=== PATIENT | female | born 1950 | race African-American/Black ===

== ENCOUNTER 2016-09-30 03:47 | Emergency (ER) | payer OTHER ==
[~2016-09-30 03:47] MED LIST: LASIX; PREMPRO 0.3 MG/1 TAB; [UNRECOGNIZED DRUG - OTHER]
[2016-10-18] MEDS ORDERED: METHIMAZOLE10 MG PO (09:08)
[2016-10-18] MEDS ORDERED: PRINIVIL40 MG PO (09:08)
[2016-10-18] MEDS ORDERED: HYDROCHLOROTHIA25 MG PO (09:08)
[2016-10-18] MEDS ORDERED: DILTIAZEM 24HR240 M2 PO (09:09)
== END 2016-09-30 03:55 | disposition home or self-care (01) ==
LOC: CED 03:47
DX: M10.9 Gout, unspecified (principal); I10 Essential (primary) hypertension; E05.90 Thyrotoxicosis, unspecified without thyrotoxic crisis or storm; Z98.890 Other specified postprocedural states
CPT/HCPCS: 96372; 99283

== ENCOUNTER 2016-10-18 10:18 | Inpatient (IN) | payer OTHER ==
--- NOTE | ~2016-10-18 | HP ---
Unit #: [id number] #: [id number] Patient: CLARK CLEMENTE [id number] [address] [address] [id number] I MR#: [id number] NAME: CLARK CLEMENTE ROOM: 99747 Age: 66 Sex: F Admission Date: 10/18/2016 : 1950 Attending Physician: Tiffany Dickson M.D. Primary Care Physician: No Primary Care Physician HISTORY AND PHYSICAL ADDENDUM ADDITIONAL ASSESSMENT Clarification - New onset atrial fibrillation with rapid ventricular response: The patient received 30 mg of diltiazem in the emergency department and was subsequently started on a diltiazem drip at 5 mg per hour. Heart rate has been in the 80s. Will continue the Cardizem drip at 5 mg per hour pending cardiology recommendations. Dictated by Torin Terrazas/noa TD: 10/18/2016 12:41 JOB #: [id number] HISTORY AND PHYSICAL Page 1 of 1 X Tiffany Dickson MD X HISTORY AND PHYSICAL
--- NOTE | ~2016-10-18 | DS ---
Unit #: [id number] #: [id number] Patient: CLARK CAMPBELL [id number] [address] [address] [id number] I MR#: [id number] NAME: CLARK CAMPBELL ROOM: 329 Age: 66 Sex: F Admission Date: 10/18/2016 : 1950 Discharge Date: 10/20/2016 Attending Physician: Orquidea Doll M.D. DISCHARGE SUMMARY SEE ADDENDA PRINCIPAL DIAGNOSES 1. New onset atrial fibrillation with rapid ventricular response. 2. Hypertension, controlled. 3. Gout of left great toe, resolved. 4. Leukopenia. 5. Hypokalemia. 6. Hypothyroidism, maintained on methimazole. 7. Left bundle-branch block. 8. Mild protein malnutrition. 9. Obesity. CONSULTANTS Dr. Bess, Cardiology. PROCEDURES 1. Two dimensional echocardiogram results of which is currently pending. 2. Chest x-ray on 10/18/2016, with cardiomegaly and prominent pulmonary vasculature, interstitial thickening noted. 3. Bilateral lower extremity venous Doppler, which was negative for DVT. CLINICAL HISTORY AND HOSPITAL COURSE Ms. Campbell is a very nice 66-year-old female, who presents to the emergency department with shortness of breath. Please refer to H and P for further details. Chest x-ray revealed questionable edema versus fibrosis of the lower lungs. The patient denies any hypoxia; however, EKG revealed atrial fibrillation with rapid ventricular response and a heart rate of 141. The patient was subsequently admitted. The patient was placed on Cardizem drip and therapeutic Lovenox, and Cardiology was consulted. Two dimensional echocardiogram was done and results of which are currently pending. On Cardizem, Lovenox, and IV diuretics, the patient's shortness of breath resolved and her heart rate is now returned to normal. She has been transitioned back to oral Cardizem, which she was taking at home. In addition to metoprolol and digoxin, again heart rate is stable. She has also been transitioned to oral Xarelto. I will note troponins remained negative and there was plan for an outpatient stress test. The patient did have some significant hypertension and Norvasc was added. Blood pressure can be followed up as an outpatient. The patient also had a mild flare of gout. She is on hydrochlorothiazide and will not have the addition of Lasix. I have discussed with her monitoring her fluid status. I have also provided her with some Unit #: [id number] #: [id number] Patient: CLARK CAMPBELL prednisone to take on a p.r.n. basis at home given NSAIDs are not working at home for her gout. Uric acid level can be drawn when the patient is stable on an outpatient basis to determine whether she needs the addition of allopurinol and/or discontinuation of hydrochlorothiazide. The patient is otherwise clinically stable. Today, she has some mild leukopenia with white blood cell count of 2.7 and I think this can be followed up as an outpatient. DISCHARGE CONDITION Stable. DISCHARGE STATUS Discharged to home. DISCHARGE MEDICATIONS Lasix 40 mg daily, Xarelto 20 mg daily, methimazole 10 mg b.i.d., Norvasc 5 mg daily, digoxin 0.25 mg daily, diltiazem CD 240 mg daily, hydrochlorothiazide 25 mg daily, Diovan 40 mg b.i.d., aspirin 81 mg daily, and prednisone 20 mg tablets take daily x3 days if she develops recurrent gout flare. DISCHARGE INSTRUCTIONS The patient was instructed to follow heart healthy, low-salt diet. She can increase her activity as tolerated. FOLLOWUP The patient will follow up with Dr. Bess in 4 to 6 weeks. Need outpatient stress test done. She should follow up with a new primary care provider in approximately 4 weeks. Need outpatient testing of uric acid level and repeat CBC to ensure leukopenia is resolving. I will note HIV is currently pending. Time spent on discharge 33 minutes. Dictated by... Orquidea Doll M.D. SHAI/jackie TD: 10/21/2016 01:53 JOB #: [id number] ADDENDUM Following evaluation by Cardiology, the patient was placed on Entresto 24/26 mg; however, cost was checked and this is cost prohibitive for patient. I am going to place her back on her lisinopril 40 mg p.o. daily. Discontinue Cozaar and Entresto cost can be re-evaluated as an outpatient. Also note, the patient was placed on Xarelto, but unfortunately this is also expensive and I am checking the cost of Eliquis 5 mg p.o. b.i.d., and she will be prescribed this if cost is not prohibitive. Also note, 2-dimensional echocardiogram return to chart and she was found to have an ejection fraction of 20% to 25%. She will undergo outpatient stress testing per Dr. Bess and [facility] has been arranged. Unit #: [id number] #: [id number] Patient: CLARK CAMPBELL Dictated by... Torin Woodosn/jackie TD: 10/21/2016 03:41 JOB #: [id number] ADDENDUM The patient was fortunately able to get Entresto and Xarelto cheaper after discussion with [facility], that she has been discharged back on Entresto and Xarelto as previously dictated. Lisinopril and Cozaar have been discontinued. Dictated by... Torin Woodson/jackie TD: 10/21/2016 03:58 JOB #: [id number] DISCHARGE SUMMARY Page 1 of 1 X Orquidea Doll MD X DISCHARGE SUMMARY
--- NOTE | ~2016-10-18 | HP ---
Unit #: [id number] #: [id number] Patient: CLARK CLEMENTE [id number] [facility] [address] [facility] [place] [facility]. [place], [place] [address] [id number] E MR#: [id number] NAME: CLARK CLEMENTE ROOM: Age: 66 Sex: F Admission Date: 10/18/2016 : 1950 Attending Physician: Clemencia Dia Pa-C Primary Care Physician: No Primary Care Physician HISTORY AND PHYSICAL CHIEF COMPLAINT Short of air. HISTORY OF PRESENT ILLNESS The patient is a 66-year-old female with past medical history of hyperthyroidism, hypertension and gout who presented to the emergency department for evaluation of the above. The patient states that she has had a 1-week history of upper respiratory symptoms. She states that she has had a nonproductive cough. She denies any fever. On the day prior to admission she developed increasing shortness of breath and tightness in her chest. She states that the chest tightness occurred with cough and just lasted a few seconds and then resolved spontaneously. She did have associated diaphoresis but no nausea. She also reports intermittent palpitations that is not a new problem. She denies any vomiting or diarrhea. No abdominal pain. She states that she does have constipation intermittently, but her last bowel movement was yesterday. In the emergency department initial pulse and blood pressure were 90 and 155/103 respectively. Oxygen saturation was 100% on room air. EKG showed atrial fibrillation with rapid ventricular response and a rate of 141 beats per minute. She was given 30 mg of diltiazem IV. Heart rate is currently in the 80s. She was also given one dose of Lovenox 1 mg per kg subcu. She has never been told that she has atrial fibrillation. She is being admitted to [facility] for evaluation and further treatment. Also of note, she has never seen a landing signal officer, never had a stress test nor a cardiac catheterization. PAST MEDICAL HISTORY 1. Hypertension. 2. Hyperthyroidism, followed by Dr. Flowers. 3. Gout. PAST SURGICAL HISTORY Hernia repair. SOCIAL HISTORY The patient lives with her 93-year-old mother. She does not smoke. There is no alcohol use. 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 CODE STATUS Her code status is a [id number]. Unit #: [id number] #: [id number] Patient: CLARK CLEMENTE FAMILY HISTORY Notable for her mother having atrial fibrillation. Her dad in his 70s. He had hypertension. ALLERGIES No known allergies. HOME MEDICATIONS 1. Methimazole 10 mg b.i.d. 2. Hydrochlorothiazide 25 mg daily. 3. Prinivil 40 mg daily. 4. Diltiazem 240 mg daily. REVIEW OF SYSTEMS A complete review of systems is negative except as indicated in the HPI. The patient states that she was recently treated for a gout flare with 5 days of prednisone that she completed about a week ago. The patient was seen by Dr. Flowers on September 09. She states that, at that time, her methimazole was increased to 10 mg b.i.d. PHYSICAL EXAMINATION VITAL SIGNS: Temperature is 98.1, pulse 90, respirations 18, blood pressure 155/103, oxygen saturation 100% on room air. GENERAL: The patient is a very pleasant female who is awake and alert in no acute distress. HEENT: The head is atraumatic. Mucous membranes are moist. She does have proptosis and periorbital edema. NECK: Supple. Trachea is midline. CARDIOVASCULAR: Irregular. RESPIRATORY: Lungs are clear to auscultation bilaterally with no increased work of breathing. ABDOMEN: Soft, nontender with bowel sounds present in all 4 quadrants. EXTREMITIES: Extremities are nontender. The legs show edema. The left lower extremity is visibly larger than the right. NEUROLOGIC: The patient is awake and alert. She follows commands. PSYCHIATRIC: Mood and affect are normal. The patient is cooperative. SKIN: Skin of examined areas is warm and dry. DIAGNOSTIC TESTS CARDIOVASCULAR: EKG shows atrial fibrillation with rapid ventricular response and a rate of 141 beats per minute. IMAGING: Chest x-ray shows cardiomegaly with prominent pulmonary vascularity. LABORATORY: Troponin is less than 0.05. Complete blood count notable for hemoglobin and hematocrit of 11.7 and 36.6 respectively. INR is 1.1. Comprehensive metabolic panel notable for potassium of 3.1, glucose 133. TSH is 0.02, free T4 is 1.33. ASSESSMENT 1. The patient is a 66-year-old female with new onset atrial fibrillation with rapid ventricular response. The patient received 30 mg of diltiazem. Heart rate is currently in the 80s. She was also given Lovenox. 2. Hyperthyroidism. I spoke with Dr. Flowers who confirmed that the patient is taking 10 mg of methimazole twice daily. We discussed the results of her thyroid test today, and he agreed to continue the same Unit #: [id number] #: [id number] Patient: CLARK CLEMENTE and would like to see her as an outpatient in 4 weeks. 3. Hypokalemia. 4. Hypertension. 5. Gout with recent flare. PLAN 1. Admit to intermediate level. 2. Healthy heart diet. 3. Two-D echo. 4. Lovenox 1 mg per kg subcu q.12 hours. 5. Serial cardiac enzymes. 6. Check magnesium level. 7. Potassium/magnesium protocol. 8. Monitor heart rate closely. 9. Consult Dr. Bess regarding new atrial fibrillation. 10. Check left lower extremity venous Doppler. 11. Repeat labs in the morning, including magnesium and INR. 12. Regarding code status, the patient is a [id number]. Dictated by Torin Terrazas/noa TD: 10/18/2016 12:14 JOB #: [id number] HISTORY AND PHYSICAL Page 1 of 1 X Tiffany Dickson MD X HISTORY AND PHYSICAL
--- NOTE | ~2016-10-18 | EKG ---
PATIENT: CLARK CLEMENTE UNIT #: [id number] Ventricular Rate: 141 BPM Atrial Rate: 131 BPM QRS Duration: 140 ms Q-T Interval: 324 ms QTC Calculation(Bezet): 496 ms Calculated R [place]: -27 degrees Calculated T [place]: 129 degrees Diagnosis Line: Atrial fibrillation with rapid ventricular Diagnosis Line: response Diagnosis Line: Left bundle branch block with repolarization Diagnosis Line: abnormality Diagnosis Line: Abnormal ECG Diagnosis Line: No previous ECGs available Diagnosis Line: Confirmed by LARISA MARTIN MD ([id number]) on 10/19/2016 Diagnosis Line: 9:14:48 PM INTERPRETING MD: MARIO JC
--- NOTE | ~2016-10-18 | CO ---
Unit #: [id number] #: [id number] Patient: CLARK CLEMENTE [id number] [address] [address] [id number] I MR#: [id number] NAME: CLARK CLEMENTE ROOM: 329 Age: 66 Sex: F Admission Date: 10/18/2016 : 1950 Attending Physician: Tiffany Dickson M.D. Consultation Date: 10/18/2016 CONSULTATION REPORT REASON FOR CONSULTATION Atrial fibrillation and chest pain. HISTORY OF PRESENT ILLNESS The patient is a 66-year-old female who does not have a oracle programmer analyst. She has a past medical history of hyperthyroidism, gout, pedal edema, and hypertension. 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 Flowers. The patient reports that for the past two days she has been having chest tightness when she lies flat. The pain is relieved by her sitting up in bed. It has kept her up at night. There has been no radiation of her pain. She has had some shortness of breath and palpitations. She also endorses some fatigue. At present, patient currently denies chest pain. Patient presented to the ER again with complaints of palpitations and shortness of breath. She was found to be in atrial fibrillation with RVR and with a left bundle branch block. Her point of care troponin was less than 0.05, and Cardiology has been consulted for further management. PAST MEDICAL HISTORY 1. Hypertension. 2. Hyperthyroidism. 3. Gout in the left great toe. 4. Nonsmoker. PAST SURGICAL HISTORY Hernia surgery. ALLERGIES No known allergies. HOME MEDICATIONS 1. Methimazole 10 mg p.o. b.i.d. 2. Hydrochlorothiazide 25 mg p.o. daily. 3. Lisinopril 40 mg p.o. daily. 4. Cardizem 24-hr CD 240 mg p.o. daily. FAMILY HISTORY Patient states that her mother has congestive heart failure, atrial fibrillation, and hypothyroidism. SOCIAL HISTORY Patient denies tobacco, alcohol, or illicit drug abuse. 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 She does not exercise. The patient does endorse gaining 10 pounds in the last three months. REVIEW OF SYSTEMS A 10-point review of systems has been done and is considered otherwise negative unless indicated in the History of Present Illness. PHYSICAL EXAMINATION GENERAL: Patient is awake, alert, and in no acute distress. VITAL SIGNS: Temperature 98.1, heart rate 82, respirations 18, and blood pressure 152/108. HEENT: Head is atraumatic and normocephalic. Pupils are equal, round, and reactive. Extraocular movements are intact. No drainage from ears or nares. NECK: Supple. Trachea is midline. Normal carotid upstrokes. No lymphadenopathy. CHEST: Lungs are clear to auscultation bilaterally. No wheezes, rales, or rhonchi. CARDIOVASCULAR: S1 and S2, irregular. No murmurs, rubs, or gallops are appreciated. ABDOMEN: Soft, nontender, and nondistended. Bowel sounds are positive in all four quadrants. SKIN: Appears to be warm, dry, and intact. No unusual rashes or lesions. EXTREMITIES: No clubbing or cyanosis. Patient has +2 bilateral lower extremity edema. NEUROLOGIC: Cranial nerves II-XII intact. Alert and oriented x4. Pleasant and conversant. No focal deficits. DIAGNOSTIC STUDIES LABORATORY: White blood cells 5.3, hemoglobin 11.7, hematocrit 36.6, and platelets 233,000. Sodium 141, potassium 3.1, chloride 109, CO2 of 22, BUN 16, creatinine 1.3, and glucose 133. TSH 0.02. Point of care troponin is less than 0.05. IMAGING: Chest x-ray shows cardiomegaly and vascular congestion. CARDIOLOGY: EKG shows atrial fibrillation with a left bundle branch block. ASSESSMENT 1. New-onset atrial fibrillation with a CHADS-VASc score of 3. 2. Chest pain. 3. Left bundle branch block, unsure if new or chronic. 4. Hypertension. 5. Hyperthyroidism. 6. Gout in the left great toe. 7. Nonsmoker. PLAN At this time, will continue the patient on a Cardizem drip. She is on Lovenox b.i.d. Will continue DELORIS and hydrochlorothiazide. Will add Lasix 40 mg IV b.i.d., aspirin 81 mg p.o. b.i.d., and metoprolol 25 mg p.o. b.i.d. Will do strict I/Os and daily weights. Also agree with trending cardiac enzymes. Patient may need an ischemic evaluation. Will defer to Dr. Barrera for further evaluation. Dictated by... Kelly Reyes A.P.R.N. for Unit #: [id number] #: [id number] Patient: CHYNACLARKJASIEL Barrera M.D. AM/am TD: 10/18/2016 15:37 JOB #: [id number] CONSULTATION REPORT Page 1 of 1 X Kelly Reyes APRN X CONSULTATION REPORT
--- NOTE | ~2016-10-18 | US84 ---
[id number] [facility]. [facility] [address] [facility]. [place], [place] [address] [id number] I MR#: [id number] Acc #: [id number] NAME: CLARK CLEMENTE : 1950 SEX: F STUDY DATE/TIME: 10/18/2016 13:01 UNIT: C3A PCU ROOM: 329 STUDY DESCRIPTION: US LE Veins Complete Fidel Stdy Attending Physician: Tiffany Dickson M.D. Ordering Physician: Tiffany Dickson M.D. Primary Care Physician: Primary Care Physician No MEDICAL IMAGING REPORT This report is preliminary unless electronic signature is present EXAM Bilateral leg vein Doppler 10/18 INDICATIONS Shortness of air for 1 day with swelling in the left foot for 2 weeks. TECHNIQUE Venous ultrasound examination of both lower extremities was performed using grayscale, spectral Doppler and color flow Doppler imaging. FINDINGS The examination is negative. There is no evidence of deep venous thrombus from the groin to the lower calf bilaterally. Visualized greater saphenous veins are also patent. IMPRESSION Negative examination. No evidence of lower extremity deep venous thrombosis. Dictated by... Driss Viera Jr., M.D. THIS IS AN ELECTRONICALLY VERIFIED REPORT Driss Viera Jr., M.D. at 10/18/2016 4:53 PM DAVIK/blanca TD: 10/18/2016 15:35 JOB #: [id number] MEDICAL IMAGING REPORT Page 1 of 1 COPY
--- NOTE | ~2016-10-18 | CR72 ---
[facility] A Service of [facility] & [facility] RADIOLOGY TEXT RESULTS PATIENT: CLARK CAMPBELL LOCATION: A 329-01 : [birth year] UNIT #: [id number] AGE: [address]: Orquidea Doll MD SEX: F ORDER DR: [id number] [facility] [address] [facility]. [place], [place] [address] [id number] E MR#: [id number] Acc #: [id number] NAME: CLARK CAMPBELL : 1950 SEX: F STUDY DATE/TIME: 10/18/2016 9:48 UNIT: [facility] ROOM: STUDY DESCRIPTION: CR Chest Single View Portable Attending Physician: Clemencia Dia Pa-C Ordering Physician: Clemencia Dai Pa-C Primary Care Physician: Primary Care Physician No MEDICAL IMAGING REPORT This report is preliminary unless electronic signature is present EXAM Portable chest INDICATIONS 66-year-old female with cough, shortness of breath and congestion for 3 days. Compared with 08/06/2004 FINDINGS Cardiomegaly and prominent central pulmonary vasculature. Mild mid and lower zone interstitial thickening. Low lung volumes with bibasilar atelectasis. Visualized osseous structures are unremarkable. IMPRESSION 1. There is cardiomegaly with prominent pulmonary vasculature centrally. This is a new finding compared with 2004. 2. There is mild mid and lower zone interstitial thickening. This may be interstitial edema or possibly infectious or inflammatory. Correlate clinically. Dictated by... Evaristo Campbell M.D. THIS IS AN ELECTRONICALLY VERIFIED REPORT Evaristo Campbell M.D. at 10/19/2016 9:07 AM ZENAIDA/mirian TD: 10/18/2016 12:35 JOB #: [id number] MEDICAL IMAGING REPORT Page 1 of 1 COPY
[2016-10-18 09:53] LABS: POC - CKMB 1.2 ng/mL (0.0-7.9); POC - TROPONIN <0.05 ng/mL (<=0.05)
[2016-10-18 09:58] LABS: BASOPHIL# 0.1 X10e3 (0-0.3); EOSINOPHIL# 0.1 X10e3 (0-0.7); EOSINOPHIL% 2.2 % (0.0-7.0); HEMATOCRIT 36.6 % (35.0-45.0); HEMOGLOBIN 11.7 gm/dL (12.0-16.0); LYMPHOCYTE# 1.2 X10e3 (1.0-3.5); LYMPHOCYTE% 23.1 % (17.0-45.0); MEAN CELL VOLUME 82.8 FL (83-96); MEAN CORPUSCULAR HEMOGLOBIN 26.5 PG (28-34); MEAN PLATELET VOLUME 9.4 FL (6.5-11.5); MONOCYTE# 0.4 X10e3 (0-1.0); MONOCYTE% 7.7 % (3.0-12.0); NEUTROPHIL# 3.5 X10e3 (1.5-7.1); RED BLOOD COUNT 4.42 X10e (3.90-5.30); RED CELL DISTRIBUTION WIDTH 15.8 % (11.0-15.5); WHITE BLOOD COUNT 5.3 X10e3 (4.0-10.5)
[2016-10-18 10:04] LABS: INR 1.1; PARTIAL THROMBOPLASTIN TIME 27.7 SECONDS (23.5-31.3); PROTHROMBIN TIME (PATIENT) 11.9 SECONDS (9.6-11.5)
[2016-10-18 10:06] LABS: DIFF IND NO
[2016-10-18 10:07] LABS: PLATELET COUNT 233 X10e3 (140-420)
[~2016-10-18 10:18] MED LIST changes: +DILTIAZEM 24HR240 M2 PO; +HYDROCHLOROTHIA25 MG PO; +METHIMAZOLE10 MG PO; +PRINIVIL40 MG PO
[2016-10-18 10:25] LABS: ALBUMIN SERUM 3.7 g/dL (3.5-5.0); BILIRUBIN, DIRECT 0.1 mg/dL (0.0-0.2); BILIRUBIN,INDIRECT 0.8 mg/dL (0.0-0.9); BILIRUBIN,TOTAL 0.9 mg/dL (0.2-2.0); BUN/CREATININE RATIO 12.3; CALCIUM SERUM 8.7 mg/dL (8.4-10.2); CREATININE SERUM 1.3 mg/dL (0.6-1.4); GLOM FILT RATE Estimated 49.2 mL/min (>60); POTASSIUM 3.1 mmol/L (3.5-5.1)
[2016-10-18 10:42] LABS: THYROID STIMULATING HORMONE 0.02 uIU/ml (0.34-5.60)
[2016-10-18 10:49] LABS: FREE THYROXIN (T4) 1.33 ng/dL (0.58-1.64)
[2016-10-18 16:45] LABS: CK TOTAL 49 IU/L (26-140)
[2016-10-18 23:45] LABS: %MB 2.9 % (0.0-4.0); MB 1.8 ng/ml
[2016-10-19 06:33] LABS: HEMATOCRIT 34.6 % (35.0-45.0); MEAN CELL VOLUME 83.1 FL (83-96); MEAN CORPUSCULAR HEMOGLOBIN 26.5 PG (28-34); MEAN CORPUSCULAR HGB CONC 31.9 g/dL (30-36); MEAN PLATELET VOLUME 10.5 FL (6.5-11.5); RED BLOOD COUNT 4.16 X10e (3.90-5.30); RED CELL DISTRIBUTION WIDTH 15.7 % (11.0-15.5); WHITE BLOOD COUNT 4.5 X10e3 (4.0-10.5)
[2016-10-19 07:06] LABS: ALBUMIN SERUM 3.3 g/dL (3.5-5.0); BILIRUBIN,TOTAL 0.9 mg/dL (0.2-2.0); BUN/CREATININE RATIO 10.9; CALCIUM SERUM 8.5 mg/dL (8.4-10.2); CREATININE SERUM 1.1 mg/dL (0.6-1.4); GLOM FILT RATE Estimated 60.2 mL/min (>60); MAGNESIUM 1.8 mg/dL (1.6-3.0); POTASSIUM 3.5 mmol/L (3.5-5.1); PROTEIN TOTAL SERUM 6.9 g/dL (6.0-8.3)
[2016-10-20 07:14] LABS: HEMATOCRIT 37.7 % (35.0-45.0); HEMOGLOBIN 11.8 gm/dL (12.0-16.0); MEAN CELL VOLUME 82.9 FL (83-96); MEAN CORPUSCULAR HGB CONC 31.4 g/dL (30-36); MEAN PLATELET VOLUME 10.6 FL (6.5-11.5); RED BLOOD COUNT 4.55 X10e (3.90-5.30); RED CELL DISTRIBUTION WIDTH 15.9 % (11.0-15.5); WHITE BLOOD COUNT 2.7 X10e3 (4.0-10.5)
[2016-10-20] MEDS ORDERED: XARELTO20 MG PO (13:14)
[2016-10-20] MEDS ORDERED: NORVASC PO (13:14)
[2016-10-20] MEDS ORDERED: LOPRESSOR PO (13:15)
[2016-10-20] MEDS ORDERED: DIGOX0.25 MG PO (13:15)
[2016-10-20] MEDS ORDERED: LASIX PO (13:16)
[2016-10-20] MEDS ORDERED: ASPIRIN81 M2 PO (13:17)
[2016-10-20] MEDS ORDERED: DELTASONE20 MG PO (13:18)
== END 2016-10-20 21:37 | disposition home or self-care (01) | DRG 310 ==
LOC: CED 10:18 → CEDOF 11:45 → C3A PCU 15:03
PROVIDERS: Family Medicine; Internal Medicine; Internal Medicine Cardiovascular Disease; Physician Assistant Medical
PROC: B24BYZZ Ultrasonography of Heart with Aorta using Other Contrast (ICD-10-PCS; principal; 2016-10-19)
PROC: 3E0234Z Introduction of Serum, Toxoid and Vaccine into Muscle, Percutaneous Approach (ICD-10-PCS; 2016-10-19)
DX: I48.91 Unspecified atrial fibrillation (principal); I10 Essential (primary) hypertension; M10.9 Gout, unspecified; E05.90 Thyrotoxicosis, unspecified without thyrotoxic crisis or storm; Z66 Do not resuscitate; E87.6 Hypokalemia; R07.9 Chest pain, unspecified; I44.7 Left bundle-branch block, unspecified; D72.819 Decreased white blood cell count, unspecified; Z23 Encounter for immunization
CPT/HCPCS: 71010; 80048; 80053; 80061; 80076; 82550; 82553; 83735; 84132; 84439; 84443; 84484; 85025; 85027; 85610; 85730; 87806; 90688; 90732; 93005; 93306; 93970; 96365; 96366; 96372; 99285; G0009; J1160; J1650; J1940; J2920; J3475

== ENCOUNTER 2016-10-24 21:11 | Inpatient (IN) | payer OTHER ==
--- NOTE | ~2016-10-24 | EKG ---
PATIENT: CLARK CLEMENTE UNIT #: [id number] Ventricular Rate: 99 BPM Atrial Rate: 80 BPM QRS Duration: 158 ms Q-T Interval: 388 ms QTC Calculation(Bezet): 497 ms Calculated R [place]: -52 degrees Calculated T [place]: 129 degrees Diagnosis Line: Atrial fibrillation Diagnosis Line: Left axis deviation Diagnosis Line: Left bundle branch block Diagnosis Line: Abnormal ECG Diagnosis Line: When compared with ECG of 24-OCT-2016 19:19, Diagnosis Line: (unconfirmed) Diagnosis Line: QT has lengthened Diagnosis Line: Confirmed by MICHA AMADO MD ([id number]) on 10/25/2016 Diagnosis Line: 11:34:22 PM INTERPRETING MD: INGRIS JC
--- NOTE | ~2016-10-24 | HP ---
Unit #: [id number] #: [id number] Patient: CLARK CLEMENTE [id number] [address] [address] [id number] I MR#: [id number] NAME: CLARK CLEMENTE ROOM: 89685 Age: 66 Sex: F Admission Date: 10/25/2016 : 1950 Attending Physician: Idania Bui M.D. Primary Care Physician: No Primary Care Physician HISTORY AND PHYSICAL CHIEF COMPLAINT Dyspnea on exertion, lightheadedness with acute kidney injury. HISTORY This pleasant 66-year-old female with a cardiomyopathy, ejection fraction 20% to 25%, atrial fibrillation, hypertension, hyperlipidemia, is admitted for acute kidney injury. The patient was admitted to this facility 10/18 through 10/20/2016 for new onset atrial fibrillation with RVR, and found to have an ejection fraction of 20% to 25%. She was placed on medications including anticoagulation, and sent home with plans to perform further workup as an outpatient. She states that she has become increasingly short of breath with exertion and lightheaded. Also, some nausea. She presents back to this emergency department where her chest x-ray shows improvement. Labs, however, are notable for acute kidney injury. PAST MEDICAL HISTORY 1. Hypertension. 2. Hyperthyroidism, followed by Dr. Flowers. 3. Cardiomyopathy, ejection fraction 20% to 25% with a left bundle branch block and new onset A-fib with RVR, admitted several days ago. 4. Gout. 5. Hernia repair. ALLERGIES No known drug allergies. HOME MEDICATIONS From the best I can determine, include: 1. Tapazole 10 mg b.i.d. 2. Lasix 40 mg daily. 3. Xarelto 20 mg daily. 4. Norvasc 5 mg daily. 5. Digoxin 0.25 mg daily. 6. Cardizem CD 240 mg daily. 7. Aspirin 81 mg daily. 8. P.r.n. prednisone. 9. Entresto 24/26 daily. 10. Possibly hydrochlorothiazide, I am unsure at this point in time. FAMILY HISTORY Atrial fibrillation. Unit #: [id number] #: [id number] Patient: CLARK CLEMENTE SOCIAL HISTORY The patient lives with her 93-year-old mother. Lifelong nonsmoker, does not drink alcohol. REVIEW OF SYSTEMS Notable for lightheadedness, shortness of breath, atrial fibrillation, hypertension, hyperthyroidism, gout, cardiomyopathy, hernia repair. All other systems were reviewed and are otherwise negative. PHYSICAL EXAMINATION GENERAL APPEARANCE: Very pleasant, young appearing 66-year-old female, currently in no acute distress. VITAL SIGNS: Temperature 97.7, pulse 67, respirations 18, blood pressure 127/106. O2 saturation 100% on room air. HEENT: Eyes PERRLA. Mild exophthalmos/proptosis and periorbital edema. Pharynx is benign. NECK: Without adenopathy or thyromegaly. CHEST: Clear. CARDIAC: Normal S1 and S2, occasionally irregular. ABDOMEN: Bowel sounds are present. No hepatosplenomegaly, tenderness or masses. EXTREMITIES: Nonpitting pedal edema. NEUROLOGIC EXAM: The patient is awake, alert, oriented. Cranial nerves are intact. Equal strength throughout. DIAGNOSTIC STUDIES LABORATORY: Hematocrit is 45.9, normal white count and platelet count. SMA-12 - glucose 114, BUN 38, creatinine 2.3, up from a BUN of 12, creatinine 1.1 several days ago. Protein is 8.6, alk. phos. 96, BNP is 195. Cardiac markers negative. IMAGING: Chest x-ray shows improved edema. CARDIOVASCULAR: EKG - A-fib, rate 62, left bundle branch block. A-fib and left bundle are old. ASSESSMENT 1. Dyspnea on exertion, lightheadedness: Patient presents with acute kidney injury on current medications. 2. Acute kidney injury. 3. Nausea on Digoxin. 4. Cardiomyopathy, ejection fraction 20% to 25% with atrial fibrillation and left bundle branch block. 5. Essential hypertension. 6. Hyperthyroidism. 7. Gout. PLANS 1. Check Dig level and will hold Dig until level is checked. 2. Discontinue Norvasc as patient is taking Cardizem. 3. Hold Entresto given acute kidney injury. 4. Gentle IV fluids tonight. 5. Cardiology to see. 6. Obtain urinalysis. Unit #: [id number] #: [id number] Patient: CLARK CLEMENTE Dictated by Idania Bui M.D. AML/df TD: 10/25/2016 05:26 JOB #: [id number] HISTORY AND PHYSICAL Page 1 of 1 X Idania Bui MD HISTORY AND PHYSICAL
--- NOTE | ~2016-10-24 | EKG ---
PATIENT: CLARK CLEMENTE UNIT #: [id number] Ventricular Rate: 62 BPM Atrial Rate: 234 BPM QRS Duration: 146 ms Q-T Interval: 428 ms QTC Calculation(Bezet): 434 ms Calculated R [place]: -43 degrees Calculated T [place]: 137 degrees Diagnosis Line: Atrial fibrillation Diagnosis Line: Left axis deviation Diagnosis Line: Left bundle branch block Diagnosis Line: Abnormal ECG Diagnosis Line: When compared with ECG of 18-OCT-2016 09:42, Diagnosis Line: Vent. rate has decreased BY 79 BPM Diagnosis Line: Confirmed by MICHA AMADO MD ([id number]) on 10/25/2016 Diagnosis Line: 11:22:26 PM INTERPRETING MD: INGRIS JC
--- NOTE | ~2016-10-24 | CR72 ---
[facility] A Service of [facility] & [facility] RADIOLOGY TEXT RESULTS PATIENT: CLARK CLEMENTE LOCATION: [facility] 572-01 : [birth year] UNIT #: [id number] AGE: [address]: Orquidea Doll MD SEX: F ORDER DR: [id number] [facility] [address] [facility]. [place], [place] [address] [id number] MR#: [id number] Acc #: [id number] NAME: CLARK CLEMENTE : 1950 SEX: F STUDY DATE/TIME: 10/24/2016 21:16 UNIT: JESSICA ROOM: STUDY DESCRIPTION: CR Chest Single View Portable Attending Physician: Luis Fernando Alfaro M.D. Ordering Physician: Luis Fernando Alfaro M.D. Primary Care Physician: Primary Care Physician No MEDICAL IMAGING REPORT This report is preliminary unless electronic signature is present EXAM Single view of the chest, 10/24/2016 INDICATION Shortness of air and congestive heart failure. Nausea. FINDINGS Single portable AP view of the chest compared to 10/18/2016. The heart is mildly enlarged. Central pulmonary vasculature is normal. No focal consolidation. IMPRESSION 1. Stable cardiomegaly. 2. Improving pulmonary vascular congestion. Dictated by... Júnior Munoz M.D. THIS IS AN ELECTRONICALLY VERIFIED REPORT Júnior Munoz M.D. at 10/25/2016 2:32 PM NATHAN/kai TD: 10/25/2016 01:26 JOB #: [id number] MEDICAL IMAGING REPORT Page 1 of 1 COPY
--- NOTE | ~2016-10-24 | DS ---
Unit #: [id number] #: [id number] Patient: CLARK CAMPBELL [id number] [address] [address] [id number] I MR#: [id number] NAME: CLARK CAMPBELL ROOM: 572 Age: 66 Sex: F Admission Date: 10/25/2016 : 1950 Discharge Date: 10/27/2016 Attending Physician: Orquidea Doll M.D. Primary Care Physician: No Primary Care Physician DISCHARGE SUMMARY PRINCIPAL DIAGNOSES 1. Acute kidney injury secondary to probable hypertension. 2. Acute Dig toxicity, resolved. 3. Sinus pause. 4. Medication-induced bradycardia. 5. Chronic atrial fibrillation, rate controlled and maintained on anticoagulation. 6. Chronic systolic congestive heart failure, ejection fraction of 20% to 25%. No acute exacerbation. 7. Hypertension. 8. Hypothyroidism. 9. Acute gout flare. CONSULTANTS Dr. Bess - Cardiology. PROCEDURES Chest x-ray with cardiomegaly. Minimal vascular congestion. CLINICAL HISTORY/HOSPITAL COURSE Ms. Campbell is a very nice 66-year-old -[place] female who presents to the emergency department with lightheadedness. In the emergency room, she was found to be mildly Dig toxic with a Dig level of 2.5. She was also found to have an elevated creatinine of 2.3, up from a baseline of 1.1 upon discharge on October 19. The patient was subsequently admitted. The patient was given a small amount of IV fluids and Digoxin was held. Nephrotoxic medications were also discontinued. Dr. Bess was consulted given her recent diagnosis of A-fib and congestive heart failure. From a renal standpoint, on day of discharge creatinine is now down to 1.4. I am going to continue to hold Lasix for a few days and decrease the dose upon discharge. Her Entresto, which was initiated last hospitalization, will also be discontinued and they will initiate a very low dose of lisinopril in a few days. As an outpatient, dose of both Lasix and lisinopril can be increased based upon renal function and blood pressure. The patient did also have an acute gout flare of her left toe which was treated with steroids. I am going to discontinue her hydrochlorothiazide upon discharge given this can contribute to acute gout flare. She does have a few doses of prednisone at home to take if she has recurrent gout flare. The patient did develop a 2.2 second pause overnight during hospitalization. Her beta richie dose was adjusted and pause has Unit #: [id number] #: [id number] Patient: CLARK CAMPBELL resolved. Overnight pulse oximetry was done but did not reveal any desaturations. The patient will be discharged home later today and will need close followup with Dr. Bess. DISCHARGE CONDITION Stable. DISCHARGE STATUS Discharge to home. DISCHARGE MEDICATIONS 1. Prednisone 20 mg daily for one day. 2. Xarelto 20 mg daily. 3. Methimazole 10 mg b.i.d. 4. Coreg 3.125 mg p.o. b.i.d. 5. Norvasc 5 mg daily. 6. Lasix 40 mg, half a tablet p.o. daily, to restart on October 31, 2016. 7. Allopurinol 100 mg daily. 8. Aspirin 81 mg daily. 9. Lisinopril 5 mg p.o. daily, to begin on October 30, 2016. DISCHARGE INSTRUCTIONS The patient was instructed to follow a heart healthy 1800 mL fluid restricted diet. She can increase her activity as tolerated. FOLLOWUP The patient will follow up with Dr. Bess in one to two weeks. She needs to call to make an appointment. She needs a repeat basic metabolic panel at that time in addition to further evaluation of blood pressure. If both are within normal limits, perhaps can increase dose of lisinopril and decrease and/or discontinue Norvasc. Time spent on discharge - 33 minutes. Dictated by... Orquidea Doll M.D. Sid/gabriel TD: 10/27/2016 09:37 JOB #: [id number] DISCHARGE SUMMARY Page 1 of 1 X Orquidea Doll MD DISCHARGE SUMMARY
--- NOTE | ~2016-10-24 | DS ---
Unit #: [id number] #: [id number] Patient: CLARK CLEMENTE [id number] [address] [address] [id number] I MR#: [id number] NAME: CLARK CLEMENTE ROOM: 57 Age: 66 Sex: F Admission Date: 10/25/2016 : 1950 Discharge Date: 10/27/2016 Attending Physician: Orquidea Doll M.D. Primary Care Physician: No Primary Care Physician DISCHARGE SUMMARY ADDENDUM Medications have been adjusted by cardiology. We are going to discontinue lisinopril, continue her on Norvasc, and restart her on Entresto 24-26 mg. Dictated by... Orquidea Doll M.D. SHAI/rai TD: 10/28/2016 07:37 JOB #: [id number] DISCHARGE SUMMARY Page 1 of 1 X Orquidea Doll MD X DISCHARGE SUMMARY
--- NOTE | ~2016-10-24 | CO ---
Unit #: [id number] #: [id number] Patient: CLARK CAMPBELL [id number] [place], [place] [address] [id number] I MR#: [id number] NAME: CLARK CAMPBELL ROOM: 57 Age: 66 Sex: F Admission Date: 10/25/2016 : 1950 Attending Physician: Orquidea Doll M.D. Primary Care Physician: No Primary Care Physician Consultation Date: 10/25/2016 CONSULTATION REPORT REASON FOR CONSULTATION Consult is requested by Dr. Bui for atrial fibrillation. HISTORY OF PRESENT ILLNESS Ms. Clark Campbell is a 66-year-old -[place] Citizen female that was admitted to [facility] last week from October 18 through October 20 with a diagnosis of new atrial fibrillation. She completed a 2D echocardiogram at that time which showed ejection fraction of 20% to 25%. Her heart rates were controlled and she was discharged with plans for outpatient stress test. Before discharge, she was also fitted for a LifeVest for which she wore two days and then stated she was intolerant to wearing that. She has noted since she was discharged that she has had fatigue daily and shortness of breath, especially with exertion as well as some nausea. This information is from patient records, patient interview, as well as, from record review. She presented to the hospital again yesterday at 7:13 p.m. with a complaint of shortness of breath and dyspnea. She was found to be in acute renal failure and digoxin toxic. She was admitted to the hospital service and cardiology was consulted for further management of her medications due to her cardiac diagnoses. Prior cardiac testing history includes a 2D echocardiogram on October 19, 2016, which showed EF of 20% to 25%. PAST MEDICAL HISTORY 1. Hyperlipidemia, follows with Dr. lFowers. 2. Gout. 3. Hypertension. 4. Atrial fibrillation, recently diagnosed October 18, 2016 and anticoagulated since on Xarelto at 20 mg daily. 5. Hernia repair. ALLERGIES No known drug allergies. HOME MEDICATIONS 1. Methimazole 10 mg twice daily. 2. Hydrochlorothiazide 25 mg daily. 3. Diltiazem 240 mg daily. 4. Xarelto 20 mg daily. 5. Norvasc 5 mg daily. 6. Lanoxin 0.25 mg daily. 7. Lopressor 50 mg b.i.d. 8. Lasix 40 mg daily. Unit #: [id number] #: [id number] Patient: CLARK CAMPBELL 9. Aspirin 81 mg daily. 10. Prednisone 20 mg daily for three days. 11. Entresto twice daily. SOCIAL HISTORY She denies ever using tobacco, alcohol, or drugs. 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 She notes a 10-pound weight gain in the last three months. FAMILY HISTORY Her mother has congestive heart failure, atrial fibrillation, and hypothyroidism. REVIEW OF SYSTEMS GENERAL: Denies any fevers, chills, flu-like symptoms, or unintentional weight loss. SKIN: Denies any rashes, ulcerations, or wounds. HEADACHE: Occasionally, especially today. EYES: Increased blurred vision with tiredness. EARS: No sudden change in hearing. BLEEDING: Denies any epistaxis, hemoptysis, hematuria, or melena. THROAT: Has problems swallowing pills. LUNGS: Denies any wheeze. Positive for nonproductive chronic cough with shortness of breath with exertion. CHEST: Denied any pain, palpitations. Tachycardia is better than last week. No PND, orthopnea. GASTROINTESTINAL: Nausea at times. No vomiting, diarrhea, constipation, or change in stools. GENITOURINARY: No burning or urgency. EXTREMITIES: She has swelling of her left foot due to gout, otherwise no swelling. SPINE: No chronic back pain or scoliosis. NEUROLOGIC: No numbness, tingling, seizures, stroke-like symptoms, dizziness. She has felt "loopy" but no unsteadiness or falls. PHYSICAL EXAMINATION VITAL SIGNS: Blood pressure is 120/79, heart rate 96, respirations 15, temperature is 98.4, weight 197 pounds. GENERAL: Well-developed, well-nourished -[place] Citizen female in no acute distress, resting in the bed. SKIN: No obvious rashes or ulcerations noted. Bilateral chronic lower extremity skin changes from hypothyroidism. EYES: PERRLA. No xanthelasma. ORAL: Good dentition. Moist mucous membranes. No pallor. NECK: No carotid bruits auscultated bilaterally. No jugular vein distention. SPINE: No scoliosis. CHEST: Clear to auscultation bilaterally. No wheezes, rales, or rhonchi. CARDIAC: S1, S2. Irregular heart rhythm. No murmur, rub, gallop, or lift. ABDOMEN: Soft, nontender. Positive bowel sounds. EXTREMITIES: Bilateral pedal pulses +2. No edema. NEUROLOGIC: Alert and oriented x3. Speech is clear. No obvious neuro deficits. DIAGNOSTIC STUDIES Current labs/tests include: Unit #: [id number] #: [id number] Patient: CLARK CAMPBELL LABORATORY: Urinalysis shows no infection. Troponin less than 0.05 x2. Digoxin level 2.5. BNP of 195. Hemoglobin 14.5, hematocrit 45.9, platelets 314,000, and white blood cell count 6.7. Sodium 136, potassium 3.9, glucose 114, BUN 38, creatinine 2.3. AST 15, ALT 15, albumin 3.9. IMAGING: Chest x-ray is stable cardiomegaly with improving pulmonary vascular congestion. CARDIOVASCULAR: EKG shows atrial fibrillation with a controlled ventricular rate. IMPRESSION 1. Atrial fibrillation with a controlled ventricular rate. 2. Chronic systolic congestive heart failure with an ejection fraction of 20%. 3. Acute renal failure, thought to be secondary to a diuretic. 4. Toxic digoxin level. 5. Hypertension. 6. Acute gout flare. 7. Hyperthyroidism. PLAN 1. We will discontinue the Lasix and hydrochlorothiazide. 2. We will continue to hold the digoxin and also discontinue the Cardizem CD. 3. Of note since my interview with her, she has developed some atrial fibrillation with rapid ventricular response. We will elevate her beta richie at this time with a goal also to switch to metoprolol succinate before discharge. Thank you for allowing us to participate in the care of this patient. Will be happy to follow this patient with you. Dictated by... Willem OttoRJimyN. for Torin Welch TD: 10/25/2016 10:22 JOB #: [id number] CONSULTATION REPORT Page 1 of 1 X X CONSULTATION REPORT
[~2016-10-24 21:11] MED LIST changes: +ASPIRIN81 M2 PO; +DELTASONE20 MG PO; +DIGOX0.25 MG PO; +LASIX PO; +LOPRESSOR PO; +NORVASC PO; +XARELTO20 MG PO
[2016-10-24 22:07] LABS: ALBUMIN SERUM 3.9 g/dL (3.5-5.0); BILIRUBIN, DIRECT 0.1 mg/dL (0.0-0.2); BILIRUBIN,INDIRECT 0.7 mg/dL (0.0-0.9); BILIRUBIN,TOTAL 0.8 mg/dL (0.2-2.0); BUN/CREATININE RATIO 16.52; CALCIUM SERUM 8.7 mg/dL (8.4-10.2); CREATININE SERUM 2.3 mg/dL (0.6-1.4); GLOM FILT RATE Estimated 24.7 mL/min (>60); POTASSIUM 3.9 mmol/L (3.5-5.1); PROTEIN TOTAL SERUM 8.6 g/dL (6.0-8.3)
[2016-10-24 22:14] LABS: BASOPHIL# 0.1 X10e3 (0-0.3); BASOPHIL% 0.8 % (0-2.5); EOSINOPHIL# 0.1 X10e3 (0-0.7); EOSINOPHIL% 1.8 % (0.0-7.0); HEMATOCRIT 45.9 % (35.0-45.0); HEMOGLOBIN 14.5 gm/dL (12.0-16.0); LYMPHOCYTE# 1.6 X10e3 (1.0-3.5); LYMPHOCYTE% 24.2 % (17.0-45.0); MEAN CELL VOLUME 84.1 FL (83-96); MEAN CORPUSCULAR HEMOGLOBIN 26.6 PG (28-34); MEAN CORPUSCULAR HGB CONC 31.6 g/dL (30-36); MEAN PLATELET VOLUME 10.1 FL (6.5-11.5); MONOCYTE# 0.7 X10e3 (0-1.0); NEUTROPHIL# 4.1 X10e3 (1.5-7.1); NEUTROPHIL% 62.2 % (40-75); PLATELET COUNT 314 X10e3 (140-420); RED BLOOD COUNT 5.45 X10e (3.90-5.30); RED CELL DISTRIBUTION WIDTH 16.1 % (11.0-15.5); WHITE BLOOD COUNT 6.7 X10e3 (4.0-10.5)
[2016-10-24 22:29] LABS: DIFF IND NO
[2016-10-24 22:35] LABS: POC - CKMB <1.0 ng/mL (0.0-7.9); POC - TROPONIN <0.05 ng/mL (<=0.05)
[2016-10-24] MEDS ORDERED: ENTRESTO 24 MG1 EACH PO (23:50)
[2016-10-25 06:37] LABS: POC - CKMB <1.0 ng/mL (0.0-7.9); POC - TROPONIN <0.05 ng/mL (<=0.05)
[2016-10-25 08:49] LABS: URINE SOURCE CATH
[2016-10-25 08:55] LABS: URINE APPEARANCE CLEAR; URINE BILIRUBIN NEG (NEG); URINE BLOOD NEG (NEG); URINE COLOR YELLOW; URINE GLUCOSE NEG (NEG); URINE KETONE NEG (NEG); URINE LEUKOCYTE ESTERASE TRACE (NEG); URINE NITRATE NEG (NEG); URINE PROTEIN NEG (NEG); URINE SPECIFIC GRAVITY 1.007 (1.003-1.035); URINE UROBILINOGEN 0.2 MG/DL (NEG)
[2016-10-25 08:58] LABS: U HYALINE CASTS AUWI 0-2 /[LPF]; URBCS1 AUWI 0-2 /[HPF] (0-2); URINE BACTERIA AUWI NEG (NEGATIVE); URINE SQUAMOUS EPITHELIAL CELL OCC /[HPF]; UWBCS1 AUWI 0-2 (0-5)
[2016-10-25 09:04] LABS: CULTURE INDICATED? NO
[2016-10-25 13:09] LABS: HEMATOCRIT 43.4 % (35.0-45.0); MEAN CELL VOLUME 82.5 FL (83-96); MEAN CORPUSCULAR HEMOGLOBIN 26.6 PG (28-34); MEAN CORPUSCULAR HGB CONC 32.2 g/dL (30-36); MEAN PLATELET VOLUME 10.1 FL (6.5-11.5); RED BLOOD COUNT 5.26 X10e (3.90-5.30); RED CELL DISTRIBUTION WIDTH 15.9 % (11.0-15.5); WHITE BLOOD COUNT 5.9 X10e3 (4.0-10.5)
[2016-10-25 13:28] LABS: BUN/CREATININE RATIO 18.82; CALCIUM SERUM 8.8 mg/dL (8.4-10.2); CREATININE SERUM 1.7 mg/dL (0.6-1.4); GLOM FILT RATE Estimated 35.6 mL/min (>60); POTASSIUM 3.7 mmol/L (3.5-5.1)
[2016-10-25 13:47] LABS: %MB 1.4 % (0.0-4.0); MB 1.1 ng/ml
[2016-10-26 06:42] LABS: MEAN CELL VOLUME 82.3 FL (83-96); MEAN CORPUSCULAR HEMOGLOBIN 26.8 PG (28-34); MEAN CORPUSCULAR HGB CONC 32.5 g/dL (30-36); MEAN PLATELET VOLUME 9.9 FL (6.5-11.5); RED BLOOD COUNT 4.86 X10e (3.90-5.30); RED CELL DISTRIBUTION WIDTH 15.9 % (11.0-15.5); WHITE BLOOD COUNT 4.5 X10e3 (4.0-10.5)
[2016-10-26 07:30] LABS: BUN/CREATININE RATIO 19.37; CALCIUM SERUM 8.9 mg/dL (8.4-10.2); CREATININE SERUM 1.6 mg/dL (0.6-1.4); DIGOXIN (LANOXIN) 1.8 ng/ml (1.0-2.0); GLOM FILT RATE Estimated 38.3 mL/min (>60); POTASSIUM 4.2 mmol/L (3.5-5.1)
[2016-10-27 06:42] LABS: BUN/CREATININE RATIO 21.42; CALCIUM SERUM 8.8 mg/dL (8.4-10.2); CREATININE SERUM 1.4 mg/dL (0.6-1.4); GLOM FILT RATE Estimated 44.9 mL/min (>60); POTASSIUM 3.8 mmol/L (3.5-5.1)
[2016-10-27] MEDS ORDERED: COREG3.125 MG PO (11:55)
[2016-10-27] MEDS ORDERED: ZYLOPRIM100 MG PO (11:58)
== END 2016-10-27 13:25 | disposition home or self-care (01) | DRG 683 ==
LOC: CED 21:11 → CEDOF 10-25 01:40 → C5C 10-25 08:55
PROVIDERS: Emergency Medicine; Internal Medicine
DX: N17.9 Acute kidney failure, unspecified (principal); I50.22 Chronic systolic (congestive) heart failure; I11.0 Hypertensive heart disease with heart failure; I42.9 Cardiomyopathy, unspecified; T46.0X5A Adverse effect of cardiac-stimulant glycosides and drugs of similar action, initial encounter; Y92.9 Unspecified place or not applicable; I49.5 Sick sinus syndrome; R00.1 Bradycardia, unspecified; I48.2 Chronic atrial fibrillation; Z79.01 Long term (current) use of anticoagulants; E05.90 Thyrotoxicosis, unspecified without thyrotoxic crisis or storm; M10.072 Idiopathic gout, left ankle and foot; E78.5 Hyperlipidemia, unspecified; Z79.82 Long term (current) use of aspirin; Z82.49 Family history of ischemic heart disease and other diseases of the circulatory system; R11.0 Nausea
CPT/HCPCS: 36415; 71010; 80048; 80076; 80162; 81003; 82550; 82553; 83880; 84484; 85025; 85027; 93005; 94762; 96374; 99285; J1940; J2920